=== PATIENT | male | born 1995 | race Caucasian/White ===

== ENCOUNTER 2017-11-02 17:15 | Emergency (ER) | payer OTHER ==
[~2017-11-02] VITALS: Ht 185.4 cm; Wt 74.0 kg
[2017-11-02 17:30] VITALS: TEMP 37; Ht 185.4 cm; Wt 74.0 kg
[2017-11-02 18:27] LABS: BASO % 0.2 %; BASO ABS # 0.01 K/uL (0-0.2); COMPLETE YES; EOS % 1.3 %; HEMATOCRIT 48.3 % (42-52); IG% 0.6 %; LYMPH % 20.5 %; LYMPH ABS # 1.07 K/uL (1.2-3.4); MEAN CELL VOLUME 86.9 fL (80-100); MEAN CORPUSCULAR HEMOGLOBIN 31.3 pg (25-34); MEAN PLATELET VOLUME 10.1 fL (7.4-10.4); MONO % 7.5 %; NEUT % 69.9 %; PLATELET COUNT 191 K/uL (130-400); RED BLOOD COUNT 5.56 M/uL (4.7-6.1); WHITE BLOOD COUNT 5.23 K/uL (4.8-10.8)
[2017-11-02 18:30] LABS: URINE APPEARANCE CLEAR (CLEAR); URINE BILIRUBIN NEG (NEG); URINE COLOR YELLOW; URINE NITRITE NEG (NEG); URINE SPECIFIC GRAVITY 1.011 (1.000-1.030); UROBILINOGEN NEG (NEG); ZZUR CULT IF INDIC CLEAN CATCH NO
[2017-11-02 18:35] LABS: MANUAL MICROSCOPIC REQUIRED? NO; REVIEW REQ? NO
--- NOTE | 2017-11-02 18:45 | DIAGNOSTIC IMAGING REPORT ---
CT OF THE ABDOMEN AND PELVIS WITHOUT CONTRAST, STONE PROTOCOL CLINICAL HISTORY: Left flank pain. Low back pain. COMPARISON STUDY: None. TECHNIQUE: Helical axial images of the abdomen and pelvis were obtained without IV or oral contrast according to renal stone protocol. A dose lowering technique was utilized adhering to the principles of ALARA. FINDINGS: There are no renal, ureteral or bladder calculi. There is no hydronephrosis or hydroureter. There is no perinephric infiltration. Evaluation of the remainder of the abdomen and pelvis is suboptimal on this unenhanced exam. Unenhanced images of the liver, spleen, adrenal glands and pancreas are normal. There is no evidence for a bowel obstruction. The appendix is normal. There is no lymphadenopathy or ascites. No suspicious skeletal lesions are identified. No pneumatosis, free air or portal venous gas is present. IMPRESSION: 1. No urinary calculi or hydronephrosis. 2. No acute process within the abdomen or pelvis on unenhanced exam. Electronically signed by: yDlan Stevenson M.D. 11/02/2017 6:43 PM Dictated Date/Time: 11/02/2017 6:35 PM
[2017-11-02 18:50] LABS: BUN/CREATININE RATIO 15.5 (10-20); CALCIUM 9.3 mg/dl (8.5-10.1); CREATININE 1.1 mg/dl (0.60-1.40); POTASSIUM 3.7 mmol/L (3.5-5.1)
--- NOTE | 2017-11-02 18:59 | EMERGENCY ROOM VISIT NOTE ---
History First contact with patient: 17:35 Chief Complaint: BACK PAIN Stated Complaint: LOW BACK PAIN AND SIDE PAIN History of Present Illness The patient is a 21 year old male who presents to the Emergency Room with complaints of left flank pain and left low back pain. The patient states that the pain started several days ago and has been intermittent. He states when he gets the pain in his side he has to sit down to alleviate the pain. He also gets a similar pain in the right side but it is not as severe. The patient denies any injury to his back. The patient denies any pain radiating down his legs or any numbness and tingling. The patient denies any urinary symptoms of frequency, urgency or dysuria although the patient does admit that when he urinates he sometimes gets the pain in his left side. The patient denies any change in bowel habits. He denies any nausea or vomiting. The patient denies any history of kidney stones. The patient does have a history of testicular cancer. He had his right testicle removed. Review of Systems 10 system review was performed and was negative unless stated otherwise history of present illness. Past Medical/Surgical History Right-sided testicular cancer with orchiectomy Social History Smoking Status: Never Smoker Alcohol Use: none Drug Use: none Marital Status: single Housing Status: lives with roommate Occupation Status: [employer] student Current/Historical Medications No Active Prescriptions or Reported Meds Physical Exam Vital Signs Date Time Temp Pulse Resp B/P (MAP) Pulse Ox O2 Delivery O2 Flow Rate FiO2 11/02/17 17:30 37.0 117 16 134/73 97 Room Air Physical Exam GENERAL: 21-year-old male appears in no acute distress. MENTAL Status: Alert and oriented 3. MOUTH: Mucosa is moist NECK: Supple, no lymphadenopathy noted. No carotid bruits noted. LUNGS: Clear auscultation without wheezes rales or rhonchi. CARDIAC: Regular rate and rhythm without murmur. Pulses is full and equal throughout. BACK: No CVA tenderness noted. ABDOMEN: Positive bowel sounds all 4 quadrants. Soft, slight tenderness palpation in the left flank area otherwise nontender to palpation without organomegaly or masses. LUMBAR SPINE: Patient is nontender to palpation over the spinous processes in the paravertebral region bilaterally. The patient is full range of motion of the lumbar spine. Patient is able to heel and toe walk without difficulty. Negative straight leg raise bilaterally. Bilateral patellar and Achilles reflexes are 2+. EXTREMITIES: No cyanosis or edema noted. Medical Decision & Procedures ER Provider Diagnostic Interpretation: CT OF THE ABDOMEN AND PELVIS WITHOUT CONTRAST, STONE PROTOCOL CLINICAL HISTORY: Left flank pain. Low back pain. COMPARISON STUDY: None. TECHNIQUE: Helical axial images of the abdomen and pelvis were obtained without IV or oral contrast according to renal stone protocol. A dose lowering technique was utilized adhering to the principles of ALARA. FINDINGS: There are no renal, ureteral or bladder calculi. There is no hydronephrosis or hydroureter. There is no perinephric infiltration. Evaluation of the remainder of the abdomen and pelvis is suboptimal on this unenhanced exam. Unenhanced images of the liver, spleen, adrenal glands and pancreas are normal. There is no evidence for a bowel obstruction. The appendix is normal. There is no lymphadenopathy or ascites. No suspicious skeletal lesions are identified. No pneumatosis, free air or portal venous gas is present. IMPRESSION: 1. No urinary calculi or hydronephrosis. 2. No acute process within the abdomen or pelvis on unenhanced exam. Electronically signed by: Dylan Stevenson M.D. 11/02/2017 6:43 PM Laboratory Results 11/02/17 18:16 Red Blood Count 5.56, Mean Corpuscular Volume 86.9, Mean Corpuscular Hemoglobin 31.3, Mean Corpuscular Hemoglobin Concent 36.0, Mean Platelet Volume 10.1, Neutrophils (%) (Auto) 69.9, Lymphocytes (%) (Auto) 20.5, Monocytes (%) (Auto) 7.5, Eosinophils (%) (Auto) 1.3, Basophils (%) (Auto) 0.2, Neutrophils # (Auto) 3.66, Lymphocytes # (Auto) 1.07, Monocytes # (Auto) 0.39, Eosinophils # (Auto) 0.07, Basophils # (Auto) 0.01 11/02/17 18:16 Test 11/02/17 18:16 11/02/17 18:19 White Blood Count 5.23 K/uL (4.8-10.8) Red Blood Count 5.56 M/uL (4.7-6.1) Hemoglobin 17.4 g/dL (14.0-18.0) Hematocrit 48.3 % (42-52) Mean Corpuscular Volume 86.9 fL (80-100) Mean Corpuscular Hemoglobin 31.3 pg (25-34) Mean Corpuscular Hemoglobin Concent 36.0 g/dl (32-36) Platelet Count 191 K/uL (130-400) Mean Platelet Volume 10.1 fL (7.4-10.4) Neutrophils (%) (Auto) 69.9 % Lymphocytes (%) (Auto) 20.5 % Monocytes (%) (Auto) 7.5 % Eosinophils (%) (Auto) 1.3 % Basophils (%) (Auto) 0.2 % Neutrophils # (Auto) 3.66 K/uL (1.4-6.5) Lymphocytes # (Auto) 1.07 K/uL (1.2-3.4) Monocytes # (Auto) 0.39 K/uL (0.11-0.59) Eosinophils # (Auto) 0.07 K/uL (0-0.5) Basophils # (Auto) 0.01 K/uL (0-0.2) RDW Standard Deviation 38.2 fL (36.4-46.3) RDW Coefficient of Variation 12.0 % (11.5-14.5) Immature Granulocyte % (Auto) 0.6 % Immature Granulocyte # (Auto) 0.03 K/uL (0.00-0.02) Anion Gap 11.0 mmol/L (3-11) Est Creatinine Clear Calc Drug Dose 111.2 ml/min Estimated GFR () 110.6 Estimated GFR (Non- 95.5 BUN/Creatinine Ratio 15.5 (10-20) Calcium Level 9.3 mg/dl (8.5-10.1) Total Bilirubin 1.3 mg/dl (0.2-1) Direct Bilirubin 0.3 mg/dl (0-0.2) Aspartate Amino Transf (AST/SGOT) 20 U/L (15-37) Alanine Aminotransferase (ALT/SGPT) 31 U/L (12-78) Alkaline Phosphatase 61 U/L (45-117) Total Protein 8.3 gm/dl (6.4-8.2) Albumin 4.7 gm/dl (3.4-5.0) Lipase 81 U/L (73-393) Urine Color YELLOW Urine Appearance CLEAR (CLEAR) Urine pH 6.0 (4.5-7.5) Urine Specific [place] 1.011 (1.000-1.030) Urine Protein NEG (NEG) Urine Glucose (UA) NEG (NEG) Urine Ketones 2+ (NEG) Urine Occult Blood NEG (NEG) Urine Nitrite NEG (NEG) Urine Bilirubin NEG (NEG) Urine Urobilinogen NEG (NEG) Urine Leukocyte Esterase NEG (NEG) ED Course The patient was evaluated. The patient's EMR medication list were reviewed. The patient was not in any pain at this point therefore he did not require any pain medications. IV access was obtained. CBC and differential, renal profile , LFTs and lipase levels were ordered. Urinalysis was ordered. CT stone study was ordered and interpreted by the radiologist as above without any acute findings. Labs are reviewed and were unremarkable. Urinalysis was negative. The patient was informed of all findings and discharged home in stable condition. Medical Decision Differential diagnosis include pyelonephritis, UTI, ureteral calculi, muscle strain [place] Drug Monitoring Program Search Results: patient reviewed within database Medication Reconcilliation Current Medication List: was personally reviewed by me Blood Pressure Screening Patient's blood pressure: Normal blood pressure Impression Primary Impression: Left flank pain Departure Information Dispostion Home / Self-Care Condition GOOD Prescriptions No Active Prescriptions or Reported Meds Referrals [facility] (PCP) Forms HOME CARE DOCUMENTATION FORM, IMPORTANT VISIT INFORMATION Patient Instructions My [employer] Newsletter Additional Instructions Ibuprofen 600 mg every 6 hours with food for pain. If you experience any severe abdominal pain, uncontrolled nausea vomiting, high fevers return to ER immediately. Otherwise I would recommend follow-up with your family physician when you return home over Trevor break due to year past medical history..
[2017-11-02 19:14] VITALS: BP 122/79; PULSE 106; O2SAT 95
== END 2017-11-02 19:06 | disposition home or self-care (01) ==
LOC: C.EDB 17:17 → C.EDD 19:06
DX: R10.32 Left lower quadrant pain (principal); Z90.79 Acquired absence of other genital organ(s); Z85.47 Personal history of malignant neoplasm of testis